=== PATIENT | female | born 1960 | race Caucasian/White ===

== ENCOUNTER → 2017-03-26 | Outpatient (CLI) | payer BC ==
[~2017-03-26] MED LIST: ASPIRIN81 M1 PO; CALCIUM + D 6001 TA1 PO; FISH OIL 1,0001 CAP PO; FLAX SEED OIL1000 M1 PO; GLUCOSAMINE-CH1 EAC3 PO; MULTI-DAY1 TAB PO; SYNTHROID0.05 MG PO; VIT E PO
--- NOTE | ~2017-03-26 | MY29 ---
[facility] A Service of [facility] RADIOLOGY TEXT RESULTS PATIENT: LAQUITA SALAS LOCATION: [facility] : 58 UNIT #: [id number] AGE: [address]: Park Brown APRN SEX: F ORDER DR: [id number] [facility] [address] [place], [place] [address] [id number] O MR#: [id number] Acc #: [id number] NAME: LAQUITA SALAS : 1960 SEX: F STUDY DATE/TIME: 03/26/2017 11:03 UNIT: [facility] ROOM: STUDY DESCRIPTION: MY ERIN SCREENING W/ CAD BILAT Attending Physician: Park Brown A.P.R.N. Referring Physician: Park Brown A.P.R.N. Ordering Physician: Park Brown A.P.R.N. Primary Care Physician: Park Brown A.P.R.N. MEDICAL IMAGING REPORT This report is preliminary unless electronic signature is present EXAM Bilateral digital screening mammogram with CAD. DATE 03/26/2017 HISTORY No personal history of breast cancer. Family history of breast cancer in an aunt. No current complaints. COMPARISON Bilateral screening mammogram 02/10/2016, 02/08/2015, 02/03/2014. TECHNIQUE CC and ML views were obtained of each breast utilizing digital technique and reviewed with an FDA-approved CAD device. FINDINGS Scattered fibroglandular densities are present bilaterally. The parenchymal pattern appears stable. No new or developing nodules seen. There is scattered benign-appearing calcifications bilaterally. IMPRESSION BIRADS 2. Benign findings. Routine bilateral screening mammogram is recommended in one year. Patients over the age of 40 are entered into a reminder system with target due date for the next mammogram. A result letter will also be sent to the patient. BIRADS: 2 Benign findings. [facility] A Service [facility] RADIOLOGY TEXT RESULTS PATIENT: LAQUITA SALAS LOCATION: [facility] : 58 UNIT #: [id number] AGE: [address]: Park Brown APRN SEX: F ORDER DR: Dictated by... Esperanza Escalona M.D. THIS IS AN ELECTRONICALLY VERIFIED REPORT Esperanza Escalona M.D. at 03/29/2017 8:34 AM ANTONIA/[email or web address] TD: 03/26/2017 21:57 JOB #: [id number] MEDICAL IMAGING REPORT Page 1 of 1 COPY
== END | disposition home or self-care (01) ==
LOC: CWCC 10:31
DX: Z12.31 Encounter for screening mammogram for malignant neoplasm of breast (principal); Z80.3 Family history of malignant neoplasm of breast
CPT/HCPCS: G0202